=== PATIENT | male | born 1980 | race African-American/Black ===

== ENCOUNTER 2018-06-09 06:21 | Inpatient (IN) | payer SELFPAY ==
[~2018-06-09] VITALS: Ht 177.8 cm; Wt 146.1 kg
[2018-06-09] MEDS ORDERED: LIDOCAINE VISCUS 2% 15 ML UDC ONE (06:42)
[2018-06-09] MEDS ORDERED: MAG HYDROX/AL HYDROX/SIMETH 30 ML LIQUID UDC ONE (06:43)
[2018-06-09] MEDS ORDERED: LIDOCAINE VISCUS 2% 15 ML UDC MM ONE (06:45)
[2018-06-09] MEDS ORDERED: MAG HYDROX/AL HYDROX/SIMETH 30 ML LIQUID UDC PO ONE (06:45)
[2018-06-09 07:00] LABS: BASOPHILS % (AUTO) 0.6 % (0.0-2.0); EOSINOPHILS # (AUTO) 0.2 K/uL (0.0-0.7); HEMATOCRIT 46.9 % (36.7-47.1); HEMOGLOBIN 15.4 g/dL (12.5-16.3); LYMPHOCYTES # (AUTO) 2.1 K/uL (20.0-40.0); LYMPHOCYTES % (AUTO) 34.9 % (20.5-51.5); MEAN CORPUSCULAR HEMOGLOBIN 26.1 uug (23.8-33.4); MEAN CORPUSCULAR HGB CONC 33 g/dL (32.5-36.3); MEAN CORPUSCULAR VOLUME 79.3 fL (73.0-96.2); MONOCYTES # (AUTO) 0.7 K/uL (2.0-10.0); MONOCYTES % (AUTO) 11.1 % (0.0-11.0); NEUTROPHILS % (AUTO) 50.4 % (38.5-71.5); PLATELET COUNT (AUTO) 347 K/uL (152-348); RED BLOOD CELL COUNT(AUTO) 5.92 MIL/uL (4.06-5.63)
[2018-06-09 07:05] LABS: CREATININE 1.2 mg/dL (0.6-1.3); POTASSIUM 3.8 mmol/L (3.5-5.1)
[2018-06-09 07:11] LABS: BILIRUBIN,DIRECT 0.1 mg/dL (0.0-0.2); BILIRUBIN,TOTAL 0.4 mg/dL (0.2-1.0); TOTAL PROTEIN, SERUM 7.3 g/dL (6.4-8.2)
[2018-06-09] MEDS ORDERED: ASPIRIN EC 325 MG TABLET.DR PO SCH (07:15)
[2018-06-09] MEDS ORDERED: NITROGLYCERIN 0.4 MG/TAB BOTTLE SL ONE ×2 (07:30→07:37)
[2018-06-09] MEDS ORDERED: ASPIRIN 325 MG TABLET ONE (07:37)
[2018-06-09] MEDS ORDERED: ENOXAPARIN SODIUM 80 MG/0.8 ML DISP.SYRIN SQ ONE ×2 (07:42→07:45)
[2018-06-09] MEDS ORDERED: ZOLPIDEM 5 MG TABLET PO PRN (09:30)
[2018-06-09] MEDS ORDERED: ONDANSETRON 4 MG/2 ML VIAL IV PRN (09:30)
[2018-06-09] MEDS ORDERED: MORPHINE SULFATE 2 MG/1 ML DISP.SYRIN IV PRN (09:30)
[2018-06-09] MEDS ORDERED: MAGNESIUM HYDROXIDE 30 ML LIQUID UDC PO PRN (09:30)
[2018-06-09] MEDS ORDERED: HYDROCODONE/APAP 5-325MG TABLET PO PRN (09:30)
[2018-06-09] MEDS ORDERED: Z GUARD REMEDY PASTE 57 GM TUBE TOP PRN (09:30)
[2018-06-09] MEDS ORDERED: ACETAMINOPHEN 325 MG TABLET PO PRN (09:30)
[2018-06-09 10:38] VITALS: BP 124/68
[2018-06-09] MEDS: PANTOPRAZOLE SODIUM 40 MG TABLET.DR PO SCH (11:55)
[2018-06-09] MEDS ORDERED: SWABABLE VALVE TRANSFER SET EA MC ONE (13:46)
[2018-06-09] MEDS ORDERED: IOHEXOL 350 100 ML INFUS..BTL ONE (13:46)
[2018-06-09] MEDS ORDERED: IV NORMAL SALINE 250 ML IV ONE (13:46)
[2018-06-09 15:12] VITALS: BP 135/61
[2018-06-09] MEDS: MORPHINE SULFATE 4 MG/1 ML DISP.SYRIN IV PRN (16:28)
[2018-06-09 20:30] VITALS: BP 142/103
[2018-06-09] MEDS: ATORVASTATIN 20 MG TABLET PO SCH (20:58)
[2018-06-09] MEDS ORDERED: PANTOPRAZOLE SODIUM 40 MG TABLET.DR PO ONE (21:00)
[2018-06-10] MEDS: MORPHINE SULFATE 4 MG/1 ML DISP.SYRIN IV PRN ×2 (00:08→21:35)
[2018-06-10 00:14] VITALS: BP 121/72
[2018-06-10 04:00] VITALS: BP 142/89
[2018-06-10] MEDS: PANTOPRAZOLE SODIUM 40 MG TABLET.DR PO SCH (06:14)
[2018-06-10] MEDS ORDERED: PANTOPRAZOLE SODIUM 40 MG TABLET.DR PO SCH (07:00)
[2018-06-10 07:41] LABS: MAGNESIUM 1.8 mg/dL (1.8-2.4); PHOSPHOROUS 3.7 mg/dL (2.5-4.9); POTASSIUM 3.9 mmol/L (3.5-5.1)
[2018-06-10 07:51] LABS: BASOPHILS % (AUTO) 0.4 % (0.0-2.0); EOSINOPHILS # (AUTO) 0.1 K/uL (0.0-0.7); HEMATOCRIT 47.4 % (36.7-47.1); HEMOGLOBIN 15.7 g/dL (12.5-16.3); LYMPHOCYTES # (AUTO) 2.1 K/uL (20.0-40.0); LYMPHOCYTES % (AUTO) 28.9 % (20.5-51.5); MEAN CORPUSCULAR HEMOGLOBIN 26.3 uug (23.8-33.4); MEAN CORPUSCULAR HGB CONC 33 g/dL (32.5-36.3); MEAN CORPUSCULAR VOLUME 79.7 fL (73.0-96.2); MONOCYTES # (AUTO) 0.7 K/uL (2.0-10.0); MONOCYTES % (AUTO) 10.5 % (0.0-11.0); NEUTROPHILS # (AUTO) 4.1 K/uL (1.8-8.9); NEUTROPHILS % (AUTO) 58.2 % (38.5-71.5); PLATELET COUNT (AUTO) 359 K/uL (152-348); RED BLOOD CELL COUNT(AUTO) 5.95 MIL/uL (4.06-5.63); WHITE BLOOD COUNT (AUTO) 7.1 K/uL (3.6-10.2)
[2018-06-10] MEDS: ASPIRIN 81 MG TAB.CHEW PO SCH (08:35)
[2018-06-10] MEDS: ENOXAPARIN SODIUM 40 MG/0.4 ML DISP.SYRIN SQ SCH (08:38)
[2018-06-10 11:23] VITALS: BP 120/63
[2018-06-10 12:15] VITALS: BP 127/82
[2018-06-10 15:04] VITALS: BP 116/75
[2018-06-10] MEDS ORDERED: REGADENOSON 0.4 MG/5 ML PREFILLED SYR IV ONE (18:00)
[2018-06-10] MEDS: METOPROLOL TARTRATE 25 MG TABLET PO SCH ×2 (18:16→21:28)
[2018-06-10 20:19] VITALS: BP 134/86
[2018-06-10] MEDS: ATORVASTATIN 20 MG TABLET PO SCH (21:28)
[2018-06-11 01:02] VITALS: BP 116/61
[2018-06-11] MEDS: MORPHINE SULFATE 4 MG/1 ML DISP.SYRIN IV PRN ×2 (01:36→08:56)
[2018-06-11 04:00] VITALS: BP 124/67
[2018-06-11 07:04] LABS: POTASSIUM 4.2 mmol/L (3.5-5.1)
[2018-06-11 07:05] LABS: BASOPHILS % (AUTO) 0.5 % (0.0-2.0); EOSINOPHILS # (AUTO) 0.2 K/uL (0.0-0.7); EOSINOPHILS % (AUTO) 2.5 % (0.0-7.0); HEMATOCRIT 47.7 % (36.7-47.1); HEMOGLOBIN 15.8 g/dL (12.5-16.3); MEAN CORPUSCULAR HEMOGLOBIN 26.4 uug (23.8-33.4); MEAN CORPUSCULAR HGB CONC 33 g/dL (32.5-36.3); MEAN CORPUSCULAR VOLUME 79.7 fL (73.0-96.2); MONOCYTES # (AUTO) 1.1 K/uL (2.0-10.0); MONOCYTES % (AUTO) 13.7 % (0.0-11.0); NEUTROPHILS # (AUTO) 4.8 K/uL (1.8-8.9); NEUTROPHILS % (AUTO) 59.3 % (38.5-71.5); PLATELET COUNT (AUTO) 322 K/uL (152-348); RED BLOOD CELL COUNT(AUTO) 5.99 MIL/uL (4.06-5.63); WHITE BLOOD COUNT (AUTO) 8.1 K/uL (3.6-10.2)
[2018-06-11] MEDS: ASPIRIN 81 MG TAB.CHEW PO SCH (08:53)
[2018-06-11] MEDS: PANTOPRAZOLE SODIUM 40 MG TABLET.DR PO SCH (08:53)
[2018-06-11] MEDS: ENOXAPARIN SODIUM 40 MG/0.4 ML DISP.SYRIN SQ SCH (08:54)
[2018-06-11] MEDS: METOPROLOL TARTRATE 25 MG TABLET PO SCH (08:54)
[2018-06-11] MEDS ORDERED: REGADENOSON 0.4 MG/5 ML PREFILLED SYR IV ONE (09:00)
[2018-06-11 11:05] VITALS: BP 104/70
== END 2018-06-11 12:40 | disposition home health service (06) | DRG 281 ==
LOC: ER 06:27 → TELE 08:14
PROVIDERS: ADMIT Nurse Practitioner Acute Care; ATTEND Nurse Practitioner Acute Care
DX: I16.9 Hypertensive crisis, unspecified (principal); I21.A1 Myocardial infarction type 2; I42.1 Obstructive hypertrophic cardiomyopathy; Z68.42 Body mass index [BMI] 45.0-49.9, adult; F15.188 Other stimulant abuse with other stimulant-induced disorder; G47.33 Obstructive sleep apnea (adult) (pediatric); R00.1 Bradycardia, unspecified; F17.210 Nicotine dependence, cigarettes, uncomplicated; E66.01 Morbid (severe) obesity due to excess calories; K21.9 Gastro-esophageal reflux disease without esophagitis; R73.9 Hyperglycemia, unspecified
CPT/HCPCS: 36415; 70030-TC; 71045; 83690; 83735; 84100; 85025; 85730; 93005; 93307; A4663; J1650; J2270; J2785; J7050; Q9967